=== PATIENT | male | born 1955 | race Caucasian/White ===

== ENCOUNTER 2016-09-12 14:29 | Observation (INO) ==
--- NOTE | 2016-09-12 15:49 | Emergency Department Note ---
Disposition Clinical Impression: Near syncope Disposition: Admitted As Inpatient Condition: Undetermined Referrals: NO,PCP [Primary Care Provider] - Forms: Work/School Release, ED Satisfaction Letter Time of Disposition: 20:13 General Adult HPI - General Chief complaint: ED General Medical Stated complaint: dizziness Time Seen by Provider: 09/12/16 15:47 Source: patient Mode of arrival: ambulatory Limitations: no limitations Nursing Notes Reviewed: Yes Vital Signs Reviewed: Yes - History of Present Illness HPI Narrative: 61-year-old male with recent diagnosis of type 2 diabetes and hypertension arrives to [facility] emergency department complaining of dizziness, nausea, vomiting , generalized malaise. The patient states that he was seen one week ago for similar complaints and was diagnosed with type 2 diabetes and instructed to change his diet which she has done. In addition the patient states that he was recently started on lisinopril for his blood pressure. The patient was initially complaining of systolics in the 200s at that time. The patient has been taking his lisinopril as prescribed. He is an appointment set up with a PCP for the first time within the next 2 days. The patient states that over the past 3 days he has continued to experience nausea, vomiting, generalized malaise. The patient has no focalized weaknesses or chest pain, difficulty breathing. The patient states that he feels ill even if he does not take his medicine. The patient states he has been unable to food down due to his symptoms. The patient denies any other complaints at this time. Pain Scale: 0 Improves with: nothing Worsens with: nothing Associated symptoms: Reports: malaise, nausea/vomiting Treatments Prior to Arrival: none - Related Data Previous Rx's Medication Instructions Recorded Lisinopril [Zestril] 10 mg PO DAILY #14 tablet 09/07/16 Allergies Allergy/AdvReac Type Severity Reaction Status Date / Time No Known Allergies Allergy Verified 09/07/16 13:43 All systems ED: reviewed and negative except as stated. Constitutional: Reports: weakness. Denies: fever, chills, weight change, night sweats Eyes: Denies: eye pain, eye discharge, vision change Cardiovascular: Denies: chest pain, palpitations, dyspnea on exertion, edema, syncope Respiratory: Denies: cough, dyspnea, wheezes, hemoptysis, stridor Gastrointestinal: Reports: nausea, vomiting, constipation. Denies: abdominal pain, diarrhea, hematemesis, melena, hematochezia Genitourinary: Denies: urgency, dysuria, frequency, hematuria Musculoskeletal: Denies: back pain, neck pain, arthralgia, myalgia Integumentary: Denies: rash, abrasion, lesions Neurological: Reports: weakness. Denies: headache, numbness, paresthesias, confusion, abnormal gait, vertigo Past Medical History - Past Medical History Attestation: Yes The following information was validated with the patient. Source: patient Medical history: Reports: diabetes, hypertension Surgical history: Reports: non-contributory Psychiatric history: Reports: no psych history - Social History Smoking Status: Never smoker Smokeless Tobacco Status: No Alcohol use: Reports: occasionally Drug use: Reports: none Physical Exam Physical Exam: General: Patient alert, no acute distress, not lethargic HEENT: Head normal inspection, atraumatic, PERRLA, oropharynx grossly intact and normal, trachea midline, no JVD Chest: Nontraumatic, nontender, normal chest rise CV: RRR with no murmurs, rubs, gallops Respiratory: Lungs clear to auscultation bilaterally, no rales, rhonchi, wheezes. Abdomen: Normal inspection, Normal bowel sounds 4 quadrants, nontender to palpation : Patient deferred Extremities: Normal inspection, full range of motion, appropriate pulses, capillary refill under 2 seconds Neurological: Patient alert and oriented 3, cranial nerves II through XII grossly intact, GCS 15 Skin: Warm, intact, no rashes noted - General Limitations: no limitations General appearance: alert, in no apparent distress Course Vital Signs Temperature 98.2 F 09/12/16 14:37 Pulse Rate 74 09/12/16 14:37 Respiratory Rate 18 09/12/16 14:37 Blood Pressure 210/101 09/12/16 14:37 O2 Sat by Pulse Oximetry 98 09/12/16 14:37 Temperature 98.2 F 09/12/16 14:37 Pulse Rate 66 09/12/16 18:23 Respiratory Rate 16 09/12/16 18:23 Blood Pressure 214/113 09/12/16 18:23 O2 Sat by Pulse Oximetry 98 09/12/16 18:23 Oxygen Delivery Oxygen Delivery Room Air Medical Decision Making - Lab Data Result diagrams: 09/12/16 16:00 06/05/17 16:02 Lab Results 09/12/16 09/12/16 09/12/16 Range/Units 15:25 16:00 16:00 WBC 6.9 (4.3-11.1) K/mcL RBC 5.40 (4.19-5.50) M/mcL Hgb 15.4 (12.9-16.9) g/dL Hct 44.4 (37.5-50.1) % MCV 82.2 L (83.0-100.0) fL MCH 28.5 (28.0-33.3) pg MCHC 34.7 (31.6-35.5) g/dL RDW 12.4 (11.5-14.5) % Plt Count 158 (140-400) K/mcL MPV 10.5 (9.4-12.4) fL Immature Gran % 0.4 (0-4) % Seg Neutrophils % 67.3 % Lymphocytes % 23.6 % Monocytes % 6.4 % Eosinophils % 2.2 % Basophils % 0.1 % Neutrophils # 4.6 (1.6-8.9) K/mcL Lymphocytes # 1.6 (0.6-4.6) K/mcL Monocytes # 0.4 (0.0-1.3) K/mcL Eosinophils # 0.2 (0.0-0.6) K/mcL Basophils # 0.0 (0.0-0.2) K/mcL Sodium (136-145) mEq/L Potassium (3.5-4.5) mEq/L Chloride (98-109) mEq/L Carbon Dioxide (19-29) mEq/L BUN (8-26) mg/dL Creatinine (0.72-1.25) mg/dL Est GFR ( Amer) (> 60) Est GFR (Non-Af Amer) (> 60) BUN/Creatinine Ratio (6-26) Glucose (70-99) mg/dL POC Glucose 211 H (58-89) Calculated Osmolality (280-300) Calcium (8.6-10.8) mg/dL Troponin I 0.01 (0-0.03) ng/mL 09/12/16 Range/Units 16:02 WBC (4.3-11.1) K/mcL RBC (4.19-5.50) M/mcL Hgb (12.9-16.9) g/dL Hct (37.5-50.1) % MCV (83.0-100.0) fL MCH (28.0-33.3) pg MCHC (31.6-35.5) g/dL RDW (11.5-14.5) % Plt Count (140-400) K/mcL MPV (9.4-12.4) fL Immature Gran % (0-4) % Seg Neutrophils % % Lymphocytes % % Monocytes % % Eosinophils % % Basophils % % Neutrophils # (1.6-8.9) K/mcL Lymphocytes # (0.6-4.6) K/mcL Monocytes # (0.0-1.3) K/mcL Eosinophils # (0.0-0.6) K/mcL Basophils # (0.0-0.2) K/mcL Sodium 136 (136-145) mEq/L Potassium 3.9 (3.5-4.5) mEq/L Chloride 101 (98-109) mEq/L Carbon Dioxide 28 (19-29) mEq/L BUN 13 (8-26) mg/dL Creatinine 0.82 (0.72-1.25) mg/dL Est GFR ( Amer) > 60 (> 60) Est GFR (Non-Af Amer) > 60 (> 60) BUN/Creatinine Ratio 16 (6-26) Glucose 217 H (70-99) mg/dL POC Glucose (58-89) Calculated Osmolality 289 (280-300) Calcium 8.9 (8.6-10.8) mg/dL Troponin I (0-0.03) ng/mL Attestation Statement - Attestation Attestation: Patient was seen with resident physician. I reviewed the history, physical, assessment and plan, and agree with the findings. I also personally evaluated this patient and had [id number] time with this patient. [id number] male presents to the emergency department with a complaint of dizziness, but on further discussion and description of the symptoms is really near syncope. First episode was about a week ago. He was seen in the emergency department and was diagnosed with hypertension and type 2 diabetes. Patient states it is only to doctors. He states that he was started on medications blood pressure was improving, but he just has not felt the same. He still feels like he has could pass out at any given time. He has not had chest pain or shortness of breath. He has had intermittent vomiting most recently on the way here to the emergency department. He is intermittently been able to keep anything down, and generally he just felt weak. On examination vital signs are stable he is hypertensive. Heart regular rhythm and rate. Lungs clear. Abdomen soft and nontender. Extremity is unremarkable no swelling. Neurologically intact. ED course we will do a syncope workup, and likely admit patient for near syncopal episodes. It is concerning that the patient has had improvement in his blood pressure but not really improvement in his symptoms. We will also rehydrated with fluids and use nausea medication to help improve the symptoms as well. The patient did admit at one point during his stay that when he turned his head certain ways he felt increasingly dizzy area however this did not resolve his symptoms when we attempted to treat with meclizine. Because were unable to resolve the symptoms patient still had a lot of concerns, and he described a near syncopal episode initially on arrival. Will admit the patient to the hospital for workup and evaluation for near syncope beyond what we can do in the emergency department. I agree with the resident physician assessment and plan.
[2016-09-12] MEDS ORDERED: Ondansetron 4 MG/2 ML VIAL IVP ONE (15:54)
[2016-09-12] MEDS ORDERED: 0.9 % Sodium Chloride 1,000 ML IVC ONE (15:54)
[2016-09-12 16:25] LABS: Basophils % 0.1 %; Eosinophils # 0.2 K/mcL (0.0-0.6); Eosinophils % 2.2 %; Hematocrit 44.4 % (37.5-50.1); Hemoglobin 15.4 g/dL (12.9-16.9); Immature Granulocytes % 0.4 % (0-4); Lymphocytes # 1.6 K/mcL (0.6-4.6); Lymphocytes % 23.6 %; Mean Corpuscular HGB Conc 34.7 g/dL (31.6-35.5); Mean Corpuscular Hemoglobin 28.5 pg (28.0-33.3); Mean Corpuscular Volume 82.2 fL (83.0-100.0); Mean Platelet Volume 10.5 fL (9.4-12.4); Monocytes # 0.4 K/mcL (0.0-1.3); Monocytes % 6.4 %; Neutrophils # 4.6 K/mcL (1.6-8.9); Platelet Count 158 K/mcL (140-400); Red Cell Distribution Width 12.4 % (11.5-14.5); Segmented Neutrophils % 67.3 %
[2016-09-12 16:29] LABS: BUN/Creatinine Ratio 16 (6-26); Blood Urea Nitrogen 13 mg/dL (8-26); Calcium 8.9 mg/dL (8.6-10.8); Carbon Dioxide 28 mEq/L (19-29); Chloride 101 mEq/L (98-109); Glucose 217 mg/dL (70-99); Osmolality,Calculated 289 (280-300); Potassium 3.9 mEq/L (3.5-4.5); Sodium 136 mEq/L (136-145); eGFR For African Americans > 60 (> 60); eGFR For Non-African Americans > 60 (> 60)
[2016-09-12] MEDS ORDERED: Naloxone 0.4 MG/ML INJ IVP PRN (23:10)
[2016-09-12] MEDS ORDERED: Ondansetron 4 MG/2 ML VIAL IVP PRN (23:10)
[2016-09-12] MEDS ORDERED: Acetaminophen 325 MG TABLET PO PRN (23:10)
[2016-09-12] MEDS ORDERED: 0.9 % Sodium Chloride 1,000 ML IVC SCH (23:15)
[2016-09-12] MEDS ORDERED: Dextrose Gel 15 GM PO PRN ×2 (23:20)
[2016-09-12] MEDS ORDERED: D5% in Water 1,000 ML IVC PRN (23:20)
[2016-09-12] MEDS ORDERED: *HR* Dextrose 50 % in Water (Syg) 50 ML SYRINGE IVP PRN (23:20)
[2016-09-12] MEDS: amLODIPine 5 MG TABLET PO SCH (23:37)
[2016-09-12] MEDS: 0.9 % Sodium Chloride 1,000 ML IVC SCH (23:38)
--- NOTE | 2016-09-13 02:12 | Internal Med History&Physical ---
Date of Encounter: 09/12/16 Time of Encounter: 22:00 Assessment and Plan (1) Hypertensive urgency Current visit: Yes Status: Acute Patient has BP over 200, he is on lisinopril 10 mg daily only. We will increase lisinopril to 20 mg daily and add amlodipine 10 mg daily. - After treatment patient's BP 160s now. - Continue follow-up with BP level. (2) DVT prophylaxis Current visit: Yes Status: Acute lovenox subcutaneously (3) Diabetes Current visit: No Status: Acute Newly diagnosed diabetes. - Place patient on diet control. - Insulin sliding scale coverage. May switch to by mouth medication upon discharge. - hematology nurse educator consult. 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 Escobar is a 61 year old male presented to ER for lightheaded and nausea for one week. Patient said since last Monday, he feels sick, lightheaded and almost fall. Patient has nausea, and vomited twice, the vomiting are stomach content, no blood. Patient came to emergency room and was found blood pressure high to over 200 and glucose is high to 270. He was given medication for BP and diabetes. Patient continues to have nausea and lightheaded. Today, he came to ER again and was found blood pressure 210/101, Glu 217. Patient was admitted for further management. I discussed CODE STATUS with patient. He is a full code. Past Med Surg Social Fam HX - Past Medical History Medical history: diabetes, hypertension Psychiatric history: no psych history - Past Surgical History Surgical History: non-contributory - Social History Smoking Status: Never smoker Smokeless Tobacco Status: No Alcohol use: occasionally Drug use: none - Family History Mother Living Status: Still Living Hx Family Cardiac Disorders: Yes (afib) Internal Medicine - H&P: Meds Lisinopril [Zestril] 10 mg PO DAILY #14 tablet 09/07/16 [Rx] Allergies No Known Allergies Allergy (Verified 09/07/16 13:43) All Systems PM: A 10-system review of systems was performed and is negative for pertinent findings except as documented above in the HPI. - Constitutional Vitals: Temp Pulse Resp BP Pulse Ox 98.0 F 68 16 168/88 97 09/12/16 22:10 09/12/16 22:10 09/12/16 22:10 09/13/16 00:37 09/12/16 22:10 General appearance: Present: A&O X 3, pleasant, no acute distress, answers questions appropriately - Head Head exam: Present: atraumatic, normocephalic - Eye Eye exam: Present: PERRL, conjuntiva pink, sclera anicteric Pupils: Present: PERRL - Neck Neck exam general surgery: Present: supple, trachea midline. Absent: lymphadenopathy - Respiratory Respiratory exam: Present: CTAB. Absent: accessory muscle use, rales, rhonchi, wheezes - Cardiovascular Cardiovascular exam: Present: RRR, +S1, +S2. Absent: diastolic murmur, gallop, rubs, systolic murmur - GI/Abdominal GI/Abdominal exam: Present: normal bowel sounds, soft, no peritoneal signs. Absent: distended, tenderness - Extremities Exam Extremities exam: Present: warm, radial pulses palpable and symetrical. Absent : calf tenderness, cyanotic, pedal edema - Neurological Exam Neurological exam: Present: CN II-XII intact, oriented X3, no focal deficits. Absent: pronater drift, facial droop, speech deficit - Skin Skin exam: Present: dry, intact Internal Med - H&P Results - Labs CBC & Chem 7: 09/12/16 16:00 09/12/16 16:02
[2016-09-13] MEDS: *HR* Enoxaparin 40 MG/0.4 ML SYRINGE SQ SCH (05:54)
[2016-09-13 07:16] LABS: Basophils % 0.4 %; Eosinophils # 0.2 K/mcL (0.0-0.6); Eosinophils % 2.9 %; Hematocrit 40.1 % (37.5-50.1); Hemoglobin 14.2 g/dL (12.9-16.9); Immature Granulocytes % 0.3 % (0-4); Lymphocytes # 2.6 K/mcL (0.6-4.6); Lymphocytes % 35.3 %; Mean Corpuscular HGB Conc 35.4 g/dL (31.6-35.5); Mean Corpuscular Hemoglobin 29.2 pg (28.0-33.3); Mean Corpuscular Volume 82.3 fL (83.0-100.0); Mean Platelet Volume 10.7 fL (9.4-12.4); Monocytes # 0.5 K/mcL (0.0-1.3); Monocytes % 7.4 %; Neutrophils # 3.9 K/mcL (1.6-8.9); Platelet Count 158 K/mcL (140-400); Red Blood Count 4.87 M/mcL (4.19-5.50); Red Cell Distribution Width 12.7 % (11.5-14.5); Segmented Neutrophils % 53.7 %
[2016-09-13 07:30] LABS: BUN/Creatinine Ratio 16 (6-26); Blood Urea Nitrogen 13 mg/dL (8-26); Calcium 8.6 mg/dL (8.6-10.8); Carbon Dioxide 28 mEq/L (19-29); Chloride 104 mEq/L (98-109); Glucose 164 mg/dL (70-99); Magnesium 1.9 mg/dL (1.6-2.6); Osmolality,Calculated 292 (280-300); Phosphorous 3.7 mg/dL (2.3-4.7); Potassium 3.5 mEq/L (3.5-4.5); Sodium 139 mEq/L (136-145); eGFR For African Americans > 60 (> 60); eGFR For Non-African Americans > 60 (> 60)
[2016-09-13 08:01] LABS: Hemoglobin A1C 10.4 %
[2016-09-13] MEDS: amLODIPine 5 MG TABLET PO SCH (09:30)
[2016-09-13] MEDS: Insulin LISPRO 300 UNITS/3 ML VIAL SQ SCH ×3 (09:30→16:19)
--- NOTE | 2016-09-13 16:33 | Internal Med Progress Note ---
Date of Encounter: 09/13/16 Time of Encounter: 10:35 - Assessment and plan (1) Hypertensive urgency Current Visit: Yes Status: Resolved Assessment and plan: Blood pressure is at goal and well controlled and the patient setting. Blood pressure was over 200 yesterday. His lisinopril was increased to 20 mg daily and amlodipine 10 mg by mouth daily was added. Continue to monitor blood pressure and continue medications. (2) Diabetes Current Visit: No Status: Acute Assessment and plan: Newly diagnosed diabetes. Patient is on diabetic diet. His using sliding scale insulin during his inpatient stay. Will change to metformin on discharge. Patient has not been seen by nurse educator yet. Will continue Accu-Cheks before meals and at bedtime. Qualifiers: Diabetes mellitus type: type 2 Diabetes mellitus complication status: without complication Diabetes mellitus residential insulin use: without residential use Qualified Code(s): E11.9 - Type 2 diabetes mellitus without complications (3) DVT prophylaxis Current Visit: Yes Status: Acute Assessment and plan: Lovenox subcutaneous daily. - Time Spent With Patient less than 15 minutes - Subjective Interval history: Patient was seen and assessed at 10:35 AM. He is lying in a dark room on his side facing away from the door. He denies any pain. He says that he is tired and has been ever since the increase in his blood pressure medication. He is felt to be new onset diabetes in the emergency department. He says that he expected this and says that he knows that he has a poor diet and that he has lost about 10-15 pounds over the last 2 years. He denies polydipsia or polyuria in the recent or remote future. He reports a 1 week ago he became lightheaded and fell and is remained lightheaded since. He went to the emergency room last week and was told that he was hypertensive and was given medication and went home and states he did not get better. He returned on yesterday. On his way to the emergency room yesterday had nausea and vomiting. I reassessed him this afternoon for ability to go home. He reports dry heaves , decreased appetite, and says that he has not had anything to eat today. He was given Zofran and we will encourage him to try clear liquids tonight. Advance as tolerated. Most likely we will discharge him tomorrow if he is able to tolerate by mouth intake. - Constitutional Vitals: Temp Pulse Resp BP Pulse Ox 98.4 F 70 16 149/77 96 09/13/16 15:57 09/13/16 15:57 09/13/16 15:57 09/13/16 15:57 09/13/16 15:57 General appearance: Present: cooperative, A&O X 3, pleasant, no acute distress, answers questions appropriately - Head Head exam: Present: normal inspection - Eye Eye exam: Present: normal appearance, conjuntiva pink. Absent: nystagmus - Neck Neck exam general surgery: Present: normal inspection. Absent: lymphadenopathy , tenderness - Respiratory Respiratory exam: Present: CTAB. Absent: rales, respiratory distress, rhonchi, stridor, wheezes - Cardiovascular Cardiovascular exam: Present: RRR, +S1, +S2. Absent: clicks, diastolic murmur, gallop, systolic murmur - GI/Abdominal GI/Abdominal exam: Present: normal bowel sounds, soft. Absent: hepatomegaly, tenderness - Extremities Exam Extremities exam: Present: normal inspection, warm, radial pulses palpable and symetrical. Absent: pedal edema, tenderness - Neurological Exam Neurological exam: Present: alert, oriented X3, no focal deficits, strengths equal and symetr throughout. Absent: facial droop, speech deficit Internal Medicine: Result - Labs CBC & Chem 7: 09/13/16 06:25 09/13/16 06:25 Labs: Short CBC 09/13/16 Range/Units 06:25 WBC 7.3 (4.3-11.1) K/mcL Hgb 14.2 (12.9-16.9) g/dL Hct 40.1 (37.5-50.1) % Plt Count 158 (140-400) K/mcL Neutrophils # 3.9 (1.6-8.9) K/mcL BMP 09/13/16 06:25 Sodium 139 Potassium 3.5 Chloride 104 Carbon Dioxide 28 BUN 13 Creatinine 0.82 Glucose 164 H Calcium 8.6 Consult Discharge Plan - Plan Referrals: NO,PCP [Primary Care Provider] -
[2016-09-13] MEDS: Loratadine 10 MG TABLET PO SCH (20:58)
[2016-09-13] MEDS ORDERED: Insulin LISPRO 300 UNITS/3 ML VIAL SQ SCH (21:00)
--- NOTE | 2016-09-13 23:47 | Electrocardiograph Report ---
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
[2016-09-14 05:29] LABS: Basophils % 0.4 %; Eosinophils # 0.2 K/mcL (0.0-0.6); Hematocrit 40.8 % (37.5-50.1); Hemoglobin 13.8 g/dL (12.9-16.9); Immature Granulocytes % 0.2 % (0-4); Lymphocytes # 2.4 K/mcL (0.6-4.6); Lymphocytes % 42.2 %; Mean Corpuscular HGB Conc 33.8 g/dL (31.6-35.5); Mean Corpuscular Volume 82.8 fL (83.0-100.0); Mean Platelet Volume 10.1 fL (9.4-12.4); Monocytes # 0.5 K/mcL (0.0-1.3); Monocytes % 8.2 %; Neutrophils # 2.6 K/mcL (1.6-8.9); Platelet Count 155 K/mcL (140-400); Red Blood Count 4.93 M/mcL (4.19-5.50); Red Cell Distribution Width 12.5 % (11.5-14.5)
[2016-09-14 05:46] LABS: BUN/Creatinine Ratio 15 (6-26); Blood Urea Nitrogen 12 mg/dL (8-26); Calcium 8.5 mg/dL (8.6-10.8); Carbon Dioxide 25 mEq/L (19-29); Chloride 106 mEq/L (98-109); Chol/HDL Ratio 4.4 (0-4.9); Cholesterol 131 mg/dL (< 200); Glucose 149 mg/dL (70-99); HDL Cholesterol 30 mg/dL (40-59); LDL Cholesterol,Calculated 79 mg/dL (0-99); Osmolality,Calculated 289 (280-300); Potassium 3.6 mEq/L (3.5-4.5); Sodium 138 mEq/L (136-145); Triglycerides 108 mg/dL (< 150); eGFR For African Americans > 60 (> 60); eGFR For Non-African Americans > 60 (> 60)
[2016-09-14] MEDS: *HR* Enoxaparin 40 MG/0.4 ML SYRINGE SQ SCH (06:03)
[2016-09-14] MEDS: 0.9 % Sodium Chloride 1,000 ML IVC SCH (06:04)
[2016-09-14] MEDS: Loratadine 10 MG TABLET PO SCH (08:04)
[2016-09-14] MEDS: amLODIPine 5 MG TABLET PO SCH (08:04)
[2016-09-14] MEDS: Insulin LISPRO 300 UNITS/3 ML VIAL SQ SCH ×2 (08:05→12:08)
[2016-09-14 10:38] VITALS: BP 164/82
--- NOTE | 2016-09-14 14:26 | Discharge Summary ---
Date of Encounter: 09/14/16 Time of Encounter: 11:00 - Discharge Diagnosis (1) Hypertensive urgency Priority: Primary Status: Resolved Comments: Blood pressure has been above goal of 140/90 at times during admission, has been elevated today. Was over 200 on admission. Lisinopril was increased to 20 mg daily and amlodipine 10 mg was added. Patient states that he is feeling better. He will need to follow up with primary care for medication adjustment and continued monitoring of blood pressure. I did encourage patient to take his blood pressure routinely either at home with a home monitor or at a pharmacy. We did discuss the dangers of untreated hypertension, especially with diabetes. Patient was aware. (2) Diabetes Priority: Secondary Status: Acute Comments: New onset diabetes. Initial A1c is 10.4. Patient was diagnosed emergency department last week, but was not sent home with any glucose testing supplies were instructions. Patient seems exceptionally motivated to eat correctly and has good support at home of his son. Patient seems educated on carbohydrates and seems upset that this morning's diabetic diet consisted of orange juice, milk, and 2 large pancakes. He was aware enough to eat one pancake. I will still have him follow-up with chemical educator outpatient. I will also send him home with metformin, and a prescription for glucose testing supplies. I discussed the side effects of metformin with him, I urged him to continue taking it the symptoms became exceptionally bothersome. I encouraged him to follow up with primary care prior to stopping medication if symptoms did become bothersome. Qualifiers: Diabetes mellitus type: type 2 Diabetes mellitus complication status: without complication Diabetes mellitus termite control representative insulin use: without termite control representative use Qualified Code(s): E11.9 - Type 2 diabetes mellitus without complications (3) DVT prophylaxis Priority: Secondary Status: Acute Comments: Lovenox subcutaneous daily. - Discharge Medications Prescriptions: amLODIPine [Norvasc] 10 mg PO DAILY #30 tablet Blood Sugar Diagnostic [Test Strips] 1 each MC QID #120 strip Blood-Glucose Meter, Drum-Type [Accu-Chek] 1 each MC DAILY #1 kit Fluticasone Propionate Nasal [Flonase] 50 mcg NS DAILY #1 bottle Lancets 1 each MC QID #120 each Lancing Device 1 each MC DAILY #1 each Lisinopril [Zestril] 20 mg PO DAILY #30 tablet Loratadine [Claritin] 10 mg PO DAILY #30 tablet metFORMIN [Glucophage] 500 mg PO BIDWM #60 tablet Home Medications: Blood Sugar Diagnostic [Test Strips] 1 each QID #120 strip 09/14/16 [Rx] Blood-Glucose Meter, Drum-Type [Accu-Chek] 1 each DAILY #1 kit 09/14/16 [Rx] Fluticasone Propionate Nasal [Flonase] 50 mcg NS DAILY #1 bottle 09/14/16 [Rx] Lancets 1 each QID #120 each 09/14/16 [Rx] Lancing Device 1 each DAILY #1 each 09/14/16 [Rx] Lisinopril [Zestril] 20 mg PO DAILY #30 tablet 09/14/16 [Rx] Loratadine [Claritin] 10 mg PO DAILY #30 tablet 09/14/16 [Rx] amLODIPine [Norvasc] 10 mg PO DAILY #30 tablet 09/14/16 [Rx] metFORMIN [Glucophage] 500 mg PO BIDWM #60 tablet 09/14/16 [Rx] Allergies/Adverse Reactions: Allergies No Known Allergies Allergy (Verified 09/07/16 13:43) Date of admission: 09/12/16 21:11 Primary care physician: PCP NO Consults: 09/12/16 21:50 Consult to Email Production Specialist [CONS] Routine Reason for SW Consult: self pay 09/13/16 02:19 Consult to Bus Escort [CONS] Routine Comment: Reason for Consult: Newly diagnosed Diabetes Discharging clinician: Faye Lockhart Anticipated date of discharge: 09/14/16 - Patient Status Disposition: Home, Self-Care Condition: Good Functional capacity at discharge: independent ambulation Overall status at discharge: patient is back to baseline - Discharge Instructions Follow Up With: NO,PCP [Primary Care Provider] - Additional Instructions: Please follow-up with your primary care physician in the next week for evaluation of blood sugar. Please take your medications as directed and monitor your blood pressure as we discussed earlier. Check your blood sugar every morning when you awaken prior to eating or drinking anything. Check it again 2 hours after a meal, then again before bedtime. Metformin can cause gastric upset and diarrhea. If the symptoms become too bothersome, please do not stop taking the medication and consult your primary care provider first. I am referring you to the chemical educator for diet planning. It sounds like you are motivated and have good support at home, continue to watch your diet until you are seen by the chemical educator. Return to the emergency department immediately for any new problems or concerns. - Diet and Activity Activity: increase activity as tolerated, return to work once cleared by your PCP/specialist Diet: diabetic diet, low fat, low cholesterol Hospital course: Mr. Escobar is a 61 year old male with virtually no prior medical history, who presents for admission for hypertensive urgency and new onset diabetes. Blood pressure was over 200 systolic in the emergency department. He had been started on lisinopril 10 mg daily, it was increased to 20 mg daily, and amlodipine 10 mg daily was added, as well. IT has been primarily well controlled, although today it was slightly above goal 150s over 80s. Patient will need to follow-up with primary care for medication adjustments and/or additions, deletions. I have encouraged patient to check his blood pressure routinely either at home or out someplace, such as a pharmacy. He states that he feels significantly better today than he did yesterday and is ready to go home. Patient is new-onset diabetes with initial A1c is 10.4. Patient does appear very motivated to get his blood sugar under control. He seemed upset the today' s diabetic breakfast diet contained 2 large pancakes, orange juice, and milk. I will refer him outpatient to see chemical educator. He seems to have good support at home of his son who is been helping him with his diet. I discussed counting carbohydrates with him and discussed keeping carbohydrates around 45 g per meal. We discussed label reading and that he would be taking his blood sugar at least bear minimum of fasting every morning. I am sending him home with a prescription for glucometer, strips, lancets, lancing device, metformin 500 mg by mouth twice daily with meals. I told him he will need to follow-up with primary care for continued evaluation and lab monitoring. He reports his normal sinus headache that is had last night and today. He states the Claritin did seem to help him, I will send him home with the current prescription for Claritin, as well as a prescription for Flonase. We discussed him not needing an antibiotic at this time and that if symptoms persisted and/ or became worse he would need to see primary care provider for possible antibiotic prescription at that time. Patient's labs and vital signs have remained stable throughout the visit. He is stable and appropriate for discharge. - Time Spent with Patient Total time spent providing and/or coordinating discharge services: Less than 30 minutes - Constitutional Vitals: Temp Pulse Resp BP Pulse Ox 97.8 F 71 16 164/82 96 09/14/16 10:35 09/14/16 10:35 09/14/16 10:35 09/14/16 10:35 09/14/16 10:35 General appearance: Present: cooperative, A&O X 3, pleasant, no acute distress, answers questions appropriately - Head Head exam: Present: normal inspection - Eye Eye exam: Present: normal appearance, conjuntiva pink - ENT ENT exam: Present: mucous membranes moist, normal exam, normal external ear exam - Neck Neck exam general surgery: Present: normal inspection. Absent: lymphadenopathy , tenderness - Respiratory Respiratory exam: Present: CTAB. Absent: rales, respiratory distress, rhonchi, stridor, wheezes - Cardiovascular Cardiovascular exam: Present: RRR, +S1, +S2. Absent: bradycardia, diastolic murmur, gallop, systolic murmur, tachycardia - Expanded Cardiovascular Exam Peripheral pulses: 2+: Dorsalis Pedis (L) PM, Dorsalis Pedis (R) PM - GI/Abdominal GI/Abdominal exam: Present: normal bowel sounds, soft. Absent: hepatomegaly, mass, pulsatile mass, tenderness - Extremities Exam Extremities exam: Present: normal capillary refill, normal inspection, warm, radial pulses palpable and symetrical. Absent: pedal edema, tenderness - Neurological Exam Neurological exam: Present: alert, oriented X3, no focal deficits, strengths equal and symetr throughout. Absent: motor sensory deficit
== END 2016-09-14 16:15 | disposition home or self-care (01) ==
LOC: 3BNU 14:29 → EMEROO 14:29 → 3BNU 21:27
PROVIDERS: ADMIT Internal Medicine; ATTEND Nurse Practitioner Family

== ENCOUNTER 2016-09-29 15:27 | Observation (INO) ==
[2016-09-29] MEDS ORDERED: Ondansetron 4 MG/2 ML VIAL IVP ONE ×2 (17:34→17:47)
[2016-09-29] MEDS ORDERED: 0.9 % Sodium Chloride 1,000 ML IVC ONE ×2 (17:34→18:37)
--- NOTE | 2016-09-29 17:40 | Emergency Department Note ---
Disposition Clinical Impression: ROC (acute kidney injury) Intractable nausea and vomiting Qualifiers: Vomiting type: unspecified Qualified Code(s): R11.2 - Nausea with vomiting, unspecified Disposition: Admitted As Inpatient Condition: Fair Referrals: Boris Shelby MD [Primary Care Provider] - Forms: ED Satisfaction Letter Time of Disposition: 19:03 Dizziness HPI - General Chief Complaint: ED Dizziness Stated Complaint: N/V, dizziness Time Seen by Provider: 09/29/16 17:15 Source: patient, family Limitations: no limitations Nursing Notes Reviewed: Yes Vital Signs Reviewed: Yes - History of Present Illness HPI Narrative: Patient is a 61-year-old male who presents to [facility] ED with a chief complaint of nausea, vomiting, dizziness like he is lightheaded whenever he has change in position. States he was just admitted last week for elevated blood pressure and new diagnosis of type 2 diabetes. He was placed on increased blood pressure medications as well as metformin. Patient states that as soon as he got to the exit ramp when he was leaving the hospital after being discharged, he started getting nauseous and vomited again. States persistently ever since then he has had nausea with vomiting anytime he gets up or moves around. Denies any pain in his head or neck or or abdomen. States when he stays still, he feels fine for the most part. He has just been getting increasingly weak ever since this has been happening. Pt Subjective Complaint: lightheadedness, weakness Onset (ago): day(s) Timing: gradual onset, intermittent Description: sense of movement, lightheadedness History of similar episodes: No History of trauma: No Severity: severe Improves with: remaining still Worsens with: movement, position Associated symptoms: Reports: denies other symptoms, weakness, nausea, vomiting. Denies: chest pain, confusion, diaphoresis, fever, chills, shortness of breath, vision changes - Related Data Previous Rx's Medication Instructions Recorded Blood Sugar Diagnostic [Test 1 each QID #120 strip 09/14/16 Strips] Blood-Glucose Meter, Drum-Type 1 each DAILY #1 kit 09/14/16 [Accu-Chek] Fluticasone Propionate Nasal 50 mcg NS DAILY #1 bottle 09/14/16 [Flonase] Lancets 1 each QID #120 each 09/14/16 Lancing Device 1 each DAILY #1 each 09/14/16 Lisinopril [Zestril] 20 mg PO DAILY #30 tablet 09/14/16 Loratadine [Claritin] 10 mg PO DAILY #30 tablet 09/14/16 amLODIPine [Norvasc] 10 mg PO DAILY #30 tablet 09/14/16 metFORMIN [Glucophage] 500 mg PO BIDWM #60 tablet 09/14/16 Allergies Allergy/AdvReac Type Severity Reaction Status Date / Time No Known Allergies Allergy Verified 09/07/16 13:43 All systems ED: reviewed and negative except as stated. Past Medical History - Past Medical History Attestation: Yes The following information was validated with the patient. Source: patient Medical history: Reports: diabetes, hypertension Surgical history: Reports: non-contributory Psychiatric history: Reports: no psych history - Social History Smoking Status: Never smoker Smokeless Tobacco Status: No Alcohol use: Reports: occasionally Drug use: Reports: none Physical Exam - General Limitations: no limitations General appearance: alert - Head Head exam: atraumatic, normocephalic, normal inspection - Eye Eye exam: Present: normal appearance, PERRL, EOMI - ENT ENT exam: normal exam, normal oropharynx, mucous membranes moist - Neck Neck exam: Present: normal inspection, full ROM, trachea midline - Chest Chest inspection: Present: normal inspection, symmetric chest wall rise - Respiratory Respiratory exam: Present: normal lung sounds bilaterally - Cardiovascular Cardiovascular exam: Present: regular rate, normal rhythm, normal heart sounds - Abdominal Exam Abdominal exam: Present: soft, Non-Tender. Absent: tenderness, distention, guarding, rebound, rigidity - Extremities Exam Extremities exam: Present: normal inspection, full ROM. Absent: tenderness, pedal edema - Back Exam Back exam: Present: normal inspection, full ROM. Absent: tenderness - Neurological Exam Neurological exam: Present: alert. Absent: motor sensory deficit - Expanded Neurological Exam Speech: Present: fluid speech Cerebellar function: finger to nose: Normal, heel to dickens: Normal Motor strength - LUE: 5/5 Motor strength - RUE: 5/5 Motor strength - LLE: 5/5 Motor strength - RLE: 5/5 Sensory exam upper extremity: light touch: Normal Sensory exam lower extremity: light touch: Normal Coma Scale Eye Opening: Spontaneous Coma Scale Motor Response: Obeys Commands Coma Scale Verbal Response: Oriented Coma Scale Total: 15 - Psychiatric Psychiatric exam: Present: normal affect, normal mood - Skin Skin exam: Present: warm, dry, intact, normal color Course Course Narrative: Patient seen and examined. Persistent intractable nausea with vomiting and lightheadedness. Lab work, CT head, EKG, troponin ordered.we will place a IV and give 1 L IV fluids. we will give 8 mg Zofran, 5 mg valium. - Reevaluation(s) Reevaluation #1: Lab work shows new onset acute kidney injury with a creatinine of 1.26. We will go ahead and give a second liter bolus of fluids. We will admit for intractable nausea and vomiting. patient will need continued IVF, nausea control and may need an MRI of the brain tomorrow. I spoke with hospitalist Yessy Marino who has accepted patient for admission. Time: 19:01 Vital Signs Temperature 97.7 F 09/29/16 15:38 Pulse Rate 74 09/29/16 15:38 Respiratory Rate 16 09/29/16 15:38 Blood Pressure 138/74 09/29/16 15:38 O2 Sat by Pulse Oximetry 98 09/29/16 15:38 Temperature 97.7 F 09/29/16 15:38 Pulse Rate 83 09/29/16 18:11 Respiratory Rate 18 09/29/16 18:11 Blood Pressure 148/95 09/29/16 18:11 O2 Sat by Pulse Oximetry 97 09/29/16 18:11 Oxygen Delivery Oxygen Delivery Room Air Dizziness - Medical Records Medical records reviewed: Yes I reviewed the patient's medical records. - Lab Data Lab results reviewed: Yes I reviewed the patient's lab results. Result diagrams: 09/29/16 17:36 09/29/16 17:36 Lab Results 09/29/16 09/29/16 09/29/16 Range/Units 17:36 17:36 17:36 WBC 10.2 (4.3-11.1) K/mcL RBC 5.73 H (4.19-5.50) M/mcL Hgb 16.4 (12.9-16.9) g/dL Hct 48.4 (37.5-50.1) % MCV 84.5 (83.0-100.0) fL MCH 28.6 (28.0-33.3) pg MCHC 33.9 (31.6-35.5) g/dL RDW 12.7 (11.5-14.5) % Plt Count 140 (140-400) K/mcL MPV 10.8 (9.4-12.4) fL Immature Gran % 0.4 (0-4) % Seg Neutrophils % 73.5 % Lymphocytes % 20.1 % Monocytes % 4.9 % Eosinophils % 0.8 % Basophils % 0.3 % Neutrophils # 7.5 (1.6-8.9) K/mcL Lymphocytes # 2.0 (0.6-4.6) K/mcL Monocytes # 0.5 (0.0-1.3) K/mcL Eosinophils # 0.1 (0.0-0.6) K/mcL Basophils # 0.0 (0.0-0.2) K/mcL Sodium 141 (136-145) mEq/L Potassium 4.5 (3.5-4.5) mEq/L Chloride 99 (98-109) mEq/L Carbon Dioxide 26 (19-29) mEq/L BUN 35 H (8-26) mg/dL Creatinine 1.26 H (0.72-1.25) mg/dL Est GFR ( Amer) > 60 (> 60) Est GFR (Non-Af Amer) 58 L (> 60) BUN/Creatinine Ratio 28 H (6-26) Glucose 163 H (70-99) mg/dL Calculated Osmolality 304 H (280-300) Lactic Acid (0.5-2.2) mmol/L Calcium 9.3 (8.6-10.8) mg/dL Total Bilirubin 1.0 (0.2-1.2) mg/dL Direct Bilirubin 0.4 (0.0-0.5) mg/dL Indirect Bilirubin 0.6 (0.0-1.2) mg/dL AST 14 (5-34) Units/L ALT 16 (0-55) Units/L Alkaline Phosphatase 67 (38-126) Units/L Troponin I 0.02 (0-0.03) ng/mL Serum Total Protein 7.7 (6.0-8.3) g/dL Albumin 4.1 (3.5-5.0) g/dL Globulin 3.6 H (2.4-3.5) g/dL Albumin/Globulin Ratio 1.1 (1.1-2.2) Amylase 36 (25-125) Units/L Lipase 17 (8-78) Units/L / Range/Units 17:36 WBC (4.3-11.1) K/mcL RBC (4.19-5.50) M/mcL Hgb (12.9-16.9) g/dL Hct (37.5-50.1) % MCV (83.0-100.0) fL MCH (28.0-33.3) pg MCHC (31.6-35.5) g/dL RDW (11.5-14.5) % Plt Count (140-400) K/mcL MPV (9.4-12.4) fL Immature Gran % (0-4) % Seg Neutrophils % % Lymphocytes % % Monocytes % % Eosinophils % % Basophils % % Neutrophils # (1.6-8.9) K/mcL Lymphocytes # (0.6-4.6) K/mcL Monocytes # (0.0-1.3) K/mcL Eosinophils # (0.0-0.6) K/mcL Basophils # (0.0-0.2) K/mcL Sodium (136-145) mEq/L Potassium (3.5-4.5) mEq/L Chloride (98-109) mEq/L Carbon Dioxide (19-29) mEq/L BUN (8-26) mg/dL Creatinine (0.72-1.25) mg/dL Est GFR ( Amer) (> 60) Est GFR (Non-Af Amer) (> 60) BUN/Creatinine Ratio (6-26) Glucose (70-99) mg/dL Calculated Osmolality (280-300) Lactic Acid 1.5 (0.5-2.2) mmol/L Calcium (8.6-10.8) mg/dL Total Bilirubin (0.2-1.2) mg/dL Direct Bilirubin (0.0-0.5) mg/dL Indirect Bilirubin (0.0-1.2) mg/dL AST (5-34) Units/L ALT (0-55) Units/L Alkaline Phosphatase (38-126) Units/L Troponin I (0-0.03) ng/mL Serum Total Protein (6.0-8.3) g/dL Albumin (3.5-5.0) g/dL Globulin (2.4-3.5) g/dL Albumin/Globulin Ratio (1.1-2.2) Amylase (25-125) Units/L Lipase (8-78) Units/L - Radiology Data Radiology results reviewed: Yes I reviewed the patient's radiology results. Chest X-Ray 09/29/16 15:52 IMPRESSION: No acute cardiopulmonary abnormality D/ / Alli Teran / Alli Teran Interpreting Provider: Alli Teran - EKG Data EKG attestation: Yes I reviewed and interpreted this EKG. EKG results narrative: EKG done at 1842 shows normal sinus rhythm with a rate of [address] elevation or depression. Normal axis.
[2016-09-29 17:45] LABS: Basophils % 0.3 %; Eosinophils # 0.1 K/mcL (0.0-0.6); Eosinophils % 0.8 %; Hematocrit 48.4 % (37.5-50.1); Hemoglobin 16.4 g/dL (12.9-16.9); Immature Granulocytes % 0.4 % (0-4); Lymphocytes % 20.1 %; Mean Corpuscular HGB Conc 33.9 g/dL (31.6-35.5); Mean Corpuscular Hemoglobin 28.6 pg (28.0-33.3); Mean Corpuscular Volume 84.5 fL (83.0-100.0); Mean Platelet Volume 10.8 fL (9.4-12.4); Monocytes # 0.5 K/mcL (0.0-1.3); Monocytes % 4.9 %; Neutrophils # 7.5 K/mcL (1.6-8.9); Platelet Count 140 K/mcL (140-400); Red Blood Count 5.73 M/mcL (4.19-5.50); Red Cell Distribution Width 12.7 % (11.5-14.5); Segmented Neutrophils % 73.5 %
[2016-09-29] MEDS ORDERED: diazePAM 10 MG/2 ML SYRINGE IVP ONE (17:47)
[2016-09-29 18:00] LABS: Alanine Aminotransferase 16 Units/L (0-55); Albumin 4.1 g/dL (3.5-5.0); Albumin/Globulin Ratio 1.1 (1.1-2.2); Alkaline Phosphatase 67 Units/L (38-126); Amylase 36 Units/L (25-125); Aspartate Amino Transferase 14 Units/L (5-34); BUN/Creatinine Ratio 28 (6-26); Bilirubin,Direct 0.4 mg/dL (0.0-0.5); Bilirubin,Indirect 0.6 mg/dL (0.0-1.2); Blood Urea Nitrogen 35 mg/dL (8-26); Calcium 9.3 mg/dL (8.6-10.8); Carbon Dioxide 26 mEq/L (19-29); Chloride 99 mEq/L (98-109); Globulin 3.6 g/dL (2.4-3.5); Glucose 163 mg/dL (70-99); Lipase 17 Units/L (8-78); Osmolality,Calculated 304 (280-300); Potassium 4.5 mEq/L (3.5-4.5); Sodium 141 mEq/L (136-145); Total Protein 7.7 g/dL (6.0-8.3); eGFR For African Americans > 60 (> 60); eGFR For Non-African Americans 58 (> 60)
--- NOTE | 2016-09-29 18:43 | Emergency Department Note ---
START Narrative - START START: I examined this patient and my medical decision-making was reviewed with the CERAMIC ARTIST/PA/Advanced Practice Nurse/Resident Physician. I agree with the documented findings, disposition and treatment plan as described except to the extent set forth below. will admit for MRI and neuro or ent consult
[2016-09-29 18:53] LABS: Thyroid Stimulating Hormone 0.165 mcIU/mL (0.350-4.840)
--- NOTE | 2016-09-29 20:16 | Internal Med History&Physical ---
Date of Encounter: 09/29/16 Time of Encounter: 19:15 Assessment and Plan (1) Dizziness Current visit: Yes Status: Acute Unclear etiology - possible vertigo Associated with nausea and vomiting, dizziness worse with movement-possibly vertigo Start Antivert, continue IV Zofran and IV fluids Chest x-ray negative for any acute process EKG-normal sinus rhythm Head CT no acute intracranial process Echocardiogram - pending (2) ROC (acute kidney injury) Current visit: Yes Status: Acute Mild AK I Likely secondary to vomiting, continue IV fluids, repeat labs in a.m. (3) Type 2 diabetes mellitus Current visit: Yes Status: Acute Type 2 diabetes, [id number], hyperglycemia Continue insulin sliding scale and glucose checks Qualifiers: Diabetes mellitus complication status: without complication Diabetes mellitus alf insulin use: without alf use Qualified Code(s): E11.9 - Type 2 diabetes mellitus without complications (4) Essential hypertension Current visit: Yes Status: Acute Uncontrolled, continue home medications, monitor (5) DVT prophylaxis Current visit: No Status: Acute Continue heparin subcutaneous. Internal Medicine - H&P: HPI Admitted From: Emergency Dept History of present illness: Mr. Escobar is a 61 year old male with past medical history of diabetes and hypertension. He presents to the ED with complaints of nausea and vomiting and dizziness. Patient states symptoms started a few days ago, and it gradually worsened. Patient was discharged about 2 weeks ago after being treated for hypertensive urgency and diabetes. He mentions he has not been feeling well for almost 1 week. He was started on metformin recently. Patient states his dizziness is worse when he turns his head or moves around. He feels comfortable when he is laying down and at rest. Also complains of generalized weakness. He had few episodes of vomiting with no blood. He does have persistent nausea however. Denies chest pain and denies shortness of breath denies abdominal pain. Denies fever and denies diarrhea or headache. No other associated symptoms. On examination patient is awake and alert. Not in any acute distress. He is able to provide all history. His mother is at bedside. Initial workup including CT of the head is negative and EKG shows normal sinus rhythm. Troponin is negative and patient does not have fever. His creatinine is 1.26 he is slightly dehydrated. Patient has already been given 1 L bolus in the ED and also been given IV Zofran. Patient will be on maintenance IV fluids. We will also start patient on Antivert to see if that helps with his dizziness. Blood glucose is 163. Patient demonstrates a sinus scale and glucose checked before meals and at bedtime. Patient states he has been advised by his primary care physician and get an echocardiogram and maybe even see a neurologist. Patient and his mother have been explained about his condition and plan of care. Understood and agreed. No unanswered questions. CODE STATUS full code. Past Med Surg Social Fam HX - Past Medical History Medical history: diabetes, hypertension Psychiatric history: no psych history - Past Surgical History Surgical History: non-contributory - Social History Smoking Status: Never smoker Smokeless Tobacco Status: No Alcohol use: occasionally Drug use: none - Family History Mother Living Status: Still Living Hx Family Cardiac Disorders: Yes (afib) Internal Medicine - H&P: Meds Fluticasone Propionate Nasal [Flonase] 50 mcg NS DAILY #1 bottle 09/14/16 [Rx] Lisinopril [Zestril] 20 mg PO DAILY #30 tablet 09/14/16 [Rx] Loratadine [Claritin] 10 mg PO DAILY #30 tablet 09/14/16 [Rx] amLODIPine [Norvasc] 10 mg PO DAILY #30 tablet 09/14/16 [Rx] metFORMIN [Glucophage] 500 mg PO BIDWM #60 tablet 09/14/16 [Rx] Allergies No Known Allergies Allergy (Verified 09/07/16 13:43) All Systems PM: A 10-system review of systems was performed and is negative for pertinent findings except as documented above in the HPI. - Constitutional Constitutional: as per HPI, weakness - Cardiovascular Cardiovascular ROS IM: no chest pain, no diaphoresis, no dyspnea, no dyspnea on exertion, no orthopnea - Respiratory Respiratory: no cough, no dyspnea, no dyspnea on exertion, no wheezing, no chest congestion - Gastrointestinal Gastrointestinal: nausea, vomiting, no abdominal pain, no cramping, no diarrhea - Musculoskeletal Musculoskeletal ROS IM: no arthralgias - Neurological Neurological ROS: dizziness, vertigo, no abnormal gait, no abnormal speech, no focal weakness, no loss of vision - Constitutional Vitals: Temp Pulse Resp BP Pulse Ox 97.7 F 83 18 148/95 97 09/29/16 15:38 09/29/16 18:11 09/29/16 18:11 09/29/16 18:11 09/29/16 18:11 General appearance: Present: A&O X 3, pleasant, no acute distress, answers questions appropriately - Head Head exam: Present: atraumatic - Eye Eye exam: Present: EOMI. Absent: nystagmus - ENT ENT exam: Present: mucous membranes moist - Neck Neck exam general surgery: Present: supple - Respiratory Respiratory exam: Present: CTAB. Absent: rhonchi, wheezes - Cardiovascular Cardiovascular exam: Present: RRR, +S1, +S2 - GI/Abdominal GI/Abdominal exam: Present: soft. Absent: guarding, tenderness - Extremities Exam Extremities exam: Present: radial pulses palpable and symetrical. Absent: cyanotic, pedal edema - Neurological Exam Neurological exam: Present: alert, oriented X3, no focal deficits Internal Med - H&P Results - Labs CBC & Chem 7: 09/29/16 17:36 09/29/16 17:36
[2016-09-29] MEDS ORDERED: Naloxone 0.4 MG/ML INJ IVP PRN (20:38)
[2016-09-29] MEDS ORDERED: Acetaminophen 325 MG TABLET PO PRN (20:38)
[2016-09-29] MEDS ORDERED: D5% in Water 1,000 ML IVC PRN (20:45)
[2016-09-29] MEDS ORDERED: *HR* Dextrose 50 % in Water (Syg) 50 ML SYRINGE IVP PRN (20:45)
[2016-09-29] MEDS ORDERED: Dextrose Gel 15 GM PO PRN ×2 (20:45)
[2016-09-29] MEDS: 0.9 % Sodium Chloride 1,000 ML IVC SCH (22:15)
[2016-09-30] MEDS: Insulin LISPRO 300 UNITS/3 ML VIAL SQ SCH ×5 (01:14→23:39)
[2016-09-30 05:12] LABS: Bilirubin,Urine Negative (Negative); Blood,Urine Negative (Negative); Clarity,Urine Clear (Clear); Color,Urine Yellow (Yellow); Glucose,Urine (UA) 100 mg/dL (Normal); Ketones,Urine 80 mg/dL (Negative); Leukocyte Esterase,Urine Negative (Negative); Nitrite,Urine Negative (Negative); PH,Urine 5.5 pH Units (5.0-8.0); Protein,Urine 30 mg/dL (Neg-Trace); Specific Gravity,Urine 1.027 (1.010-1.025); Urobilinogen,Urine Normal (Normal)
[2016-09-30 05:14] LABS: Squamous Epithelial Cell,Urine Many per lpf (None-Few)
[2016-09-30 05:28] LABS: Hematocrit 43.8 % (37.5-50.1); Mean Corpuscular HGB Conc 33.6 g/dL (31.6-35.5); Mean Corpuscular Hemoglobin 28.1 pg (28.0-33.3); Mean Corpuscular Volume 83.6 fL (83.0-100.0); Mean Platelet Volume 10.9 fL (9.4-12.4); Platelet Count 142 K/mcL (140-400); Red Blood Count 5.24 M/mcL (4.19-5.50); Red Cell Distribution Width 12.4 % (11.5-14.5)
[2016-09-30 05:29] LABS: Hemoglobin 14.7 g/dL (12.9-16.9)
[2016-09-30 05:30] LABS: Bacteria,Urine Few per hpf (None-Few); Hyaline Casts,Urine Moderate per lpf (None-Few); Mucus,Urine Many (Few); Waxy Casts,Urine Few per lpf (None Seen)
[2016-09-30 05:42] LABS: BUN/Creatinine Ratio 31 (6-26); Blood Urea Nitrogen 27 mg/dL (8-26); Calcium 8.5 mg/dL (8.6-10.8); Carbon Dioxide 26 mEq/L (19-29); Chloride 104 mEq/L (98-109); Glucose 99 mg/dL (70-99); Magnesium 1.9 mg/dL (1.6-2.6); Osmolality,Calculated 297 (280-300); Potassium 3.8 mEq/L (3.5-4.5); Sodium 141 mEq/L (136-145); eGFR For African Americans > 60 (> 60); eGFR For Non-African Americans > 60 (> 60)
[2016-09-30] MEDS: Famotidine 20 MG/2 ML VIAL IVP SCH ×2 (06:37→17:56)
[2016-09-30] MEDS: amLODIPine 5 MG TABLET PO SCH (09:09)
[2016-09-30] MEDS: Loratadine 10 MG TABLET PO SCH (09:09)
[2016-09-30] MEDS: 0.9 % Sodium Chloride 1,000 ML IVC SCH (11:40)
[2016-09-30] MEDS: Ondansetron 4 MG/2 ML VIAL IVP PRN ×2 (11:41→20:07)
--- NOTE | 2016-09-30 12:07 | Neurology - Consult Note ---
Date of Encounter: 09/30/16 Time of Encounter: 11:20 Assessment and Plan (1) Vestibular neuronitis, unspecified ear Current Visit: Yes Status: Acute Patient's symptoms as severe nausea and vomiting and [id number] dizziness and shakes concern for possible vestibular neuronitis. Patient has no focal neurological deficits on exam, no changes in vision no changes in hearing no ear pain. Patient's symptoms are increase with upright position. Patient another medical history outside of newly diagnosed diabetes mellitus and hypertension. Plan: MRI of head and brain, started patient on the 4 mg Decadron every 6 hours 1 day, meclizine and anti-emetics to control symptoms. Qualifiers: Laterality: unspecified laterality Qualified Code(s): H81.20 - Vestibular neuronitis, unspecified ear History of Present Illness Chief complaint: Dizziness HPI: Mr. Escobar is a 61 year old male with a past medical history for newly diagnosed diabetes and hypertension 3 weeks ago. Consulted for complaint of sudden onset of dizziness without vertigo symptoms of spinning 26 days ago on . Patient states around noon on he got up and walked around the kitchen and experienced sudden onset of heavy lightheadedness which caused him to fall. Patient states he was able to slow his descent by grabbing onto a rail. Patient states he did not hit his head at that time. Patient states symptoms resolved but returned the next day around noon while he was at work with inclusion of nausea and vomiting. Patient went to the hospital and was then diagnosed with diabetes and hypertension and placed on lisinopril amlodipine and metformin. After patient's discharge patient continued to have symptoms of lightheadedness and nausea and vomiting with periods of standing. Sometimes as soon as he gets up sometimes vomits after standing. Patient denies any other symptoms of change in vision, tunnel vision, change in hearing , pain anywhere, chest pain, shortness of breath, abdominal pain, diarrhea. Patient added that before onset of the symptoms he never went to a doctor for anything. 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 Past Med Surg Social Fam HX - Past Medical History Attestation: Yes The following information was validated with the patient. Source: patient Medical history: diabetes, hypertension Psychiatric history: no psych history - Past Surgical History Surgical History: non-contributory - Social History Smoking Status: Never smoker Smokeless Tobacco Status: No Alcohol use: occasionally Drug use: none - Family History Mother Living Status: Still Living Hx Family Cardiac Disorders: Yes (afib) Father History Unknown: Yes Medications and Allergies Fluticasone Propionate Nasal [Flonase] 50 mcg NS DAILY #1 bottle 09/14/16 [Rx] Lisinopril [Zestril] 20 mg PO DAILY #30 tablet 09/14/16 [Rx] Loratadine [Claritin] 10 mg PO DAILY #30 tablet 09/14/16 [Rx] amLODIPine [Norvasc] 10 mg PO DAILY #30 tablet 09/14/16 [Rx] metFORMIN [Glucophage] 500 mg PO BIDWM #60 tablet 09/14/16 [Rx] Allergies No Known Allergies Allergy (Verified 09/07/16 13:43) All Systems: A 10-system review of systems was performed and is negative for pertinent findings except as documented above in the HPI. - Constitutional Constitutional ROS IM: fatigue, weakness, no anorexia, no chills, no fever(s), no headache(s) - Nose, Mouth, Throat Nose, mouth and throat: as per HPI, no abnormal hearing, no mouth pain, no post- nasal drip, no sinus pain, no sinus pressure, no vertigo - Cardiovascular Cardiovascular ROS IM: no chest pain, no diaphoresis - Respiratory Respiratory IM: no cough, no dyspnea on exertion, no wheezing - Gastrointestinal Gastrointestinal: nausea, vomiting, no abdominal pain, no diarrhea - Musculoskeletal Musculoskeletal ROS IM: no back pain (Chronic), no muscle weakness, no neck pain , no stiffness - Integumentary Integumentary IM: as per HPI - Neurological Neurological ROS: no as per HPI, no abnormal gait, no abnormal hearing, no abnormal movements, no abnormal speech, no confusion, no focal weakness, no frequent falls, no lack of coordination, no loss of vision, no tingling (Right- sided of face), no vertigo, no weakness - Endocrine Endocrine IM: no palpitations - Hematologic/Lymphatic Hematologic/Lymphatic pediatric: no lymphadenopathy Physical Examination - Vital Signs Vital Signs: Initial Vital Signs Temp Pulse Resp BP Pulse Ox 97.7 F 74 16 138/74 98 09/29/16 15:38 09/29/16 15:38 09/29/16 15:38 09/29/16 15:38 09/29/16 15:38 - Exam Exam: General Appearance: Patient is a 61-year-old male lying comfortably on his left side in bed in no acute distress. No noticeable dysarthria or aphasia -Neurological exam: Cranial nerves II-12 intact, no focal deficits observed, strength equal 5/5 bilaterally in upper and lower extremities. Patient is unable to maintain ceiling of his lips when feeling cheek severe, drooping of right corner of mouth with smile, mild difficulty elevating her right brow. Patient able to maintain closure bilateral eyelids, left stronger than right 4/ 5 versus 5/5 respectively - Head Head exam: atraumatic, normocephalic, normal inspection - Eye Eye exam: Present: normal appearance, PERRL, EOMI, negative for scleral icterus negative for conjunctival pallor, no nystagmus - ENT ENT exam: normal exam, normal oropharynx, mucous membranes moist, bilateral equal elevation of soft palate no uvular deviation - Neck Neck exam: Present: normal inspection, full ROM, trachea midline, negative JVD - Chest Chest inspection: Present: Patient has bilateral equal rise and fall of chest wall. Non-tender to palpation. - Respiratory Respiratory exam: Clear to auscultation bilaterally without wheezes rales or rhonchi Cardiovascular Cardiovascular exam: Present: regular rate, normal rhythm, normal heart sounds, without murmurs rubs or gallops. - Abdominal Exam Abdominal exam: Present: soft, nondistended, Non-Tender light and deep palpation in all quadrants. Bowel sounds normoactive throughout all 4 quadrants. Negative for hyper or hyperresonance. - Extremities Exam Extremities exam: Present: normal inspection, full ROM, pulses equal and regular bilaterally upper and lower extremities and radials and also pedal pulses - Back Exam Back exam: Present: normal inspection, full ROM. Absent: tenderness, CVA tenderness (R), CVA tenderness (L) - Psychiatric Psychiatric exam: Present: normal affect, normal mood - Skin Skin exam: Present: warm, dry, intact, normal color - Constitutional General appearance: uncomfortable - Neurologic Sensorimotor examination: intact Detailed motor examination: grossly full strength in all extremities, full strength in all major muscle groups Motor examination - right side: 5/5: deltoids, biceps, triceps, wrist flexion, wrist extension, religious education teacher, hip flexors, tibialis Anterior, quadriceps, toe extension (EHL), plantarflexion Motor examination - left side: 08/12: deltoids, biceps, triceps, wrist flexion, wrist extension, hip flexors, religious education teacher, quadriceps, tibialis Anterior, toe extension (EHL), plantarflexion Detailed sensory examination: intact, light touch Reflexes: Biceps: 2+, Triceps: 2+, Brachioradialis: 2+, Patella: 2+, Achilles: 2 + Mental Status Examination: awake, alert, oriented to person, oriented to place, oriented to time, follows commands appropriately, answers questions appropriately, no agnosia, no aphasia, no aproxia Cranial nerve examination: PERRL, EOMI, visual crow intact, corneal reflexes brisk symmetrically, sensory to face intact, mastication intact, no facial asymmetry is present, no dysarthria, hearing is intact symmetrically, soft palate elevates bilaterally upon phonation, gag reflex intact, flexes SCM and trapezius muscles symmetrically with full power, tongue protrudes midline, no atrophy or facial fasiculations present Cerebellar examination: no dysmetria, performs finger to nose and heel to dickens symmetrically without ataxia, no truncal ataxia, no difficulty with rapid alternating movements, dysarthria Results - Laboratory Findings CBC and BMP: 09/30/16 04:28 09/30/16 04:28 Abnormal lab findings: Abnormal lab results BUN 27 mg/dL (8-26) H 09/30/16 04:28 BUN/Creatinine Ratio 31 (6-26) H 09/30/16 04:28 POC Glucose 128 (58-89) H 09/30/16 10:53 Calcium 8.5 mg/dL (8.6-10.8) L 09/30/16 04:28 Globulin 3.6 g/dL (2.4-3.5) H 09/29/16 17:36 TSH 0.165 mcIU/mL (0.350-4.840) L 09/29/16 17:36 Ur Specific [place] 1.027 (1.010-1.025) H 09/30/16 04:50 Urine Protein 30 mg/dL (Neg-Trace) H 09/30/16 04:50 Urine Glucose (UA) 100 mg/dL (Normal) H 09/30/16 04:50 Urine Ketones 80 mg/dL (Negative) H 09/30/16 04:50 Urine Microscopic RBC 3-5 per hpf (0-3) H 09/30/16 04:50 Urine Microscopic WBC 3-5 per hpf (0-3) H 09/30/16 04:50 Ur Squamous Epith Cells Many per lpf (None-Few) H 09/30/16 04:50 Hyaline Casts Moderate per lpf (None-Few) H 09/30/16 04:50 Waxy Casts Few per lpf (None Seen) H 09/30/16 04:50 Urine Mucus Many (Few) H 09/30/16 04:50 - Diagnostic Findings EKG: image reviewed (EKG taken 09/29/1844 hours shows a normal sinus rhythm at a rate of 80 bpm, appears to be some ST elevation in V3 through V6 without reciprocal changes) Additional findings: Chest X-Ray 09/29/16 15:52 IMPRESSION: No acute cardiopulmonary abnormality D/ / Alli Teran / Alli Teran Interpreting Provider: Alli Teran Head CT 09/29/16 18:27 IMPRESSION: No acute intracranial abnormality. D/ / Vaishnavi Crooks MD / Vaishnavi Crooks MD Interpreting Provider: Vaishnavi Crooks MD Consult Discharge Plan - Plan Referrals: Boris Shelby MD [Primary Care Provider] -
[2016-09-30] MEDS ORDERED: Dexamethasone 4 MG/ML VIAL IVP PRN (14:19)
--- NOTE | 2016-09-30 15:34 | Electrocardiograph Report ---
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
--- NOTE | 2016-09-30 15:41 | Electrocardiograph Report ---
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
--- NOTE | 2016-09-30 17:35 | Internal Med Progress Note ---
Date of Encounter: 09/30/16 Time of Encounter: 14:30 - Assessment and plan (1) Dizziness Current Visit: Yes Status: Acute Assessment and plan: Patient reports to the emergency department yesterday with complaints of nausea , vomiting, and dizziness. He reports that his symptoms started a few days ago and he came increasingly worse. Patient was discharged 2 weeks ago after being treated for hypertensive urgency and diabetes. He says he has not been feeling well for about a week. He was started on metformin recently. Patient states that his dizziness is intermittent and worse when he turns his head or moves around. During exam Dr. Bridges and I had him stand and move his head, there was no nystagmus either lying or standing. He did report some nausea. He denied dizziness during the exam, he did state that his symptoms are intermittent. He reports not much relief with Antivert. We are continuing the IV Zofran and IV fluids. His EKG was normal sinus rhythm. Head CT was negative. Echocardiogram showed LVEF 60-65%, normal LV chamber size and function. Mild concentric LV hypertrophy mild LV diastolic dysfunction. Normal RV structure and function, mildly dilated left atrium, and no evidence of pulmonary hypertension. MRI was resulted. I did speak with Dr. Bridges by phone. Patient is started on aspirin 325 mg by mouth daily and CTA head and neck were ordered. Dr. Bridges came back over to see the patient now, he will see him again in the morning. Head CT 09/29/16 18:27 IMPRESSION: No acute intracranial abnormality. D/ / Vaishnavi Crooks MD / Vaishnavi Crooks MD Interpreting Provider: Vaishnavi Crooks MD Brain MRI 09/30/16 14:17 IMPRESSION: 1. Multiple tiny acute ischemic infarcts in the right posterior inferior cerebellar artery territory. 2. No intracranial hemorrhage or mass effect. 3. Mild chronic white matter microvascular ischemic changes with remote lacunar infarcts in the bilateral basal ganglia and bifrontal horner radiata white matter. 4. Left greater than right mastoid effusions. D/ / Moustapha Steele MD / Moustapha Steele MD Interpreting Provider: Moustapha Steele MD (2) ROC (acute kidney injury) Current Visit: Yes Status: Resolved Assessment and plan: Resolved. Labs have returned to normal limits. Continue to avoid nephrotoxins and monitor labs. 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 We will need to monitor his blood pressure diligently. - Time Spent With Patient less than 15 minutes - Subjective Interval history: This patient was seen and assessed with Dr. Bridges and Dr. Berg. - Constitutional Vitals: Temp Pulse Resp BP Pulse Ox 98.0 F 73 16 168/83 97 09/30/16 15:23 09/30/16 15:23 09/30/16 15:23 09/30/16 15:23 09/30/16 15:23 General appearance: Present: A&O X 3, pleasant, no acute distress, answers questions appropriately - Head Head exam: Present: atraumatic, normal inspection - Eye Eye exam: Present: EOMI, normal appearance, PERRL, conjuntiva pink. Absent: nystagmus - ENT ENT exam: Present: mucous membranes moist, normal exam - Neck Neck exam general surgery: Present: normal inspection. Absent: lymphadenopathy , tenderness - Respiratory Respiratory exam: Present: decreased breath sounds. Absent: rales, respiratory distress, rhonchi, stridor, wheezes - Cardiovascular Cardiovascular exam: Present: RRR, +S1, +S2. Absent: diastolic murmur, systolic murmur - GI/Abdominal GI/Abdominal exam: Present: normal bowel sounds, soft. Absent: hepatomegaly, mass, tenderness - Extremities Exam Extremities exam: Present: full ROM, normal capillary refill, warm, radial pulses palpable and symetrical. Absent: pedal edema - Neurological Exam Neurological exam: Present: alert, oriented X3, no focal deficits, strengths equal and symetr throughout. Absent: motor sensory deficit, facial droop, speech deficit - Skin Skin exam: Present: dry, intact, normal color, warm. Absent: rash Internal Medicine: Result - Labs CBC & Chem 7: 09/30/16 04:28 09/30/16 04:28 Labs: Short CBC 09/30/16 Range/Units 04:28 WBC 7.0 (4.3-11.1) K/mcL Hgb 14.7 D (12.9-16.9) g/dL Hct 43.8 (37.5-50.1) % Plt Count 142 (140-400) K/mcL BMP 09/30/16 04:28 Sodium 141 Potassium 3.8 Chloride 104 Carbon Dioxide 26 BUN 27 H Creatinine 0.88 Glucose 99 Calcium 8.5 L Urine 09/30/16 Range/Units 04:50 Urine Color Yellow (Yellow) Urine Clarity Clear (Clear) Urine pH 5.5 (5.0-8.0) pH Units Ur Specific [place] 1.027 H (1.010-1.025) Urine Protein 30 H (Neg-Trace) mg/dL Urine Glucose (UA) 100 H (Normal) mg/dL - Impressions Impressions Brain MRI 09/30/16 14:17 IMPRESSION: 1. Multiple tiny acute ischemic infarcts in the right posterior inferior cerebellar artery territory. 2. No intracranial hemorrhage or mass effect. 3. Mild chronic white matter microvascular ischemic changes with remote lacunar infarcts in the bilateral basal ganglia and bifrontal horner radiata white matter. 4. Left greater than right mastoid effusions. D/ / Moustapha Steele MD / Moustapha Steele MD Interpreting Provider: Moustapha Steele MD Consult Discharge Plan - Plan Ref[place]: [facility] [place] [facility] [place]Boris Pacheco MD [Primary Care Provider] -
[2016-09-30] MEDS: Aspirin 325 MG TABLET PO SCH (20:06)
[2016-10-01] MEDS: Insulin LISPRO 300 UNITS/3 ML VIAL SQ SCH ×3 (05:33→19:53)
[2016-10-01] MEDS: 0.9 % Sodium Chloride 1,000 ML IVC SCH ×2 (05:35→21:28)
[2016-10-01] MEDS: Famotidine 20 MG/2 ML VIAL IVP SCH ×2 (05:47→16:29)
[2016-10-01] MEDS: Ondansetron 4 MG/2 ML VIAL IVP PRN (05:48)
[2016-10-01] MEDS: amLODIPine 5 MG TABLET PO SCH (08:07)
[2016-10-01] MEDS: Aspirin 325 MG TABLET PO SCH (08:07)
[2016-10-01] MEDS: Loratadine 10 MG TABLET PO SCH (08:07)
[2016-10-01] MEDS ORDERED: hydroCHLOROthiazide 25 MG TABLET PO SCH (09:00)
--- NOTE | 2016-10-01 11:20 | Neurology Progress Note ---
Date of Encounter: 10/01/16 Time of Encounter: : Assessment and Plan (1) CVA (cerebral vascular accident) Current Visit: Yes Status: Acute Likely secondary to right vertebral artery stenosis, as evidence on CTA of brain. Will keep him on Aspirin 325mg daily. Echocardiography showed normal LVEF of 60%, no significant valvular disease. no wall motion abnormality. Lipid panel already done on last admission. permissive BP control during acute phase of CVA 7-10 days after stroke onset. PT can be beneficial. Qualifiers: CVA mechanism: stenosis Precerebral and cerebral artery: vertebral artery Laterality of affected vessel: right Qualified Code(s): I63.211 - Cerebral infarction due to unspecified occlusion or stenosis of right vertebral arteries Subjective Principal diagnosis: CVA Interval history: Patient is seen and examined. He feels fine as long as he is in horizontal position. Overall speaking, when laying iin bed he has no discomforts. MRI of brain showed acute right cerebeller infarct. MR/MR head/brain wo con IMPRESSION: 1. Multiple tiny acute ischemic infarcts in the right posterior inferior cerebellar artery territory. 2. No intracranial hemorrhage or mass effect. 3. Mild chronic white matter microvascular ischemic changes with remote lacunar infarcts in the bilateral basal ganglia and bifrontal horner radiata white matter. 4. Left greater than right mastoid effusions. CTA of neck and head: IMPRESSION: 1. Atherosclerotic changes and mild multifocal narrowing involving the right distal vertebral artery. Minor suggested narrowing in the left distal vertebral artery and basilar artery as well although these areas are limited due to artifact. No acute vascular abnormality otherwise noted. 2. Unremarkable CTA of the head. Objective - Constitutional Vitals: Temp Pulse Resp BP Pulse Ox 98.2 F 72 12 158/82 96 10/01/16 10:49 10/01/16 10:49 10/01/16 10:49 10/01/16 10:49 10/01/16 10:49 - Neurological Exam Sensorimotor examination: Present: intact Motor Examination: Present: grossly full strength in all extremities, full strength in all major muscle groups Motor examination - left side: 5/5: deltoids, biceps, triceps, wrist flexion, wrist extension, hip flexors, crude unit operator, quadriceps, tibialis Anterior, toe extension (EHL), plantarflexion Sensation intact: Present: intact, light touch Mental Status Examination: Present: awake, alert, oriented to person, oriented to place, oriented to time, follows commands appropriately, answers questions appropriately, no agnosia, no aphasia, no aproxia Cranial nerve examination: Present: PERRL, EOMI, visual crow intact, corneal reflexes brisk symmetrically, sensory to face intact, mastication intact, no facial asymmetry is present, no dysarthria, hearing is intact symmetrically, soft palate elevates bilaterally upon phonation, gag reflex intact, flexes SCM and trapezius muscles symmetrically with full power, tongue protrudes midline, no atrophy or facial fasiculations present Cerebellar examination: Present: no dysmetria, performs finger to nose and heel to dickens symmetrically without ataxia, no truncal ataxia, no difficulty with rapid alternating movements, dysarthria Results - Laboratory Findings CBC and BMP: 09/30/16 04:28 09/30/16 04:28 Abnormal lab findings: Abnormal lab results BUN 27 mg/dL (8-26) H 09/30/16 04:28 BUN/Creatinine Ratio 31 (6-26) H 09/30/16 04:28 POC Glucose 107 (58-89) H 09/30/16 23:28 Calcium 8.5 mg/dL (8.6-10.8) L 09/30/16 04:28 Globulin 3.6 g/dL (2.4-3.5) H 09/29/16 17:36 TSH 0.165 mcIU/mL (0.350-4.840) L 09/29/16 17:36 Ur Specific [place] 1.027 (1.010-1.025) H 09/30/16 04:50 Urine Protein 30 mg/dL (Neg-Trace) H 09/30/16 04:50 Urine Glucose (UA) 100 mg/dL (Normal) H 09/30/16 04:50 Urine Ketones 80 mg/dL (Negative) H 09/30/16 04:50 Urine Microscopic RBC 3-5 per hpf (0-3) H 09/30/16 04:50 Urine Microscopic WBC 3-5 per hpf (0-3) H 09/30/16 04:50 Ur Squamous Epith Cells Many per lpf (None-Few) H 09/30/16 04:50 Hyaline Casts Moderate per lpf (None-Few) H 09/30/16 04:50 Waxy Casts Few per lpf (None Seen) H 09/30/16 04:50 Urine Mucus Many (Few) H 09/30/16 04:50 Consult Discharge Plan - Plan Referrals: Boris Shelby MD [Primary Care Provider] -
--- NOTE | 2016-10-01 11:46 | Internal Med Progress Note ---
Date of Encounter: 10/01/16 Time of Encounter: 10:20 - Assessment and plan (1) CVA (cerebral vascular accident) Current Visit: Yes Status: Acute Assessment and plan: MRI done last night showed multiple tiny acute ischemic infarcts in right posterior inferior cerebellar artery territory. There is no hemorrhage or mass effect. There is mild chronic white matter microvascular ischemic changes with remote lacunar infarcts in bilateral basal ganglia bifrontal horner radiata white matter. Patient later had CTA of brain and neck, CVA was likely secondary to right vertebral artery stenosis. Echocardiogram as above. Lipid panel was done on last admission and appears to be within normal limits. Per neurology recommendation, permissive BP control during acute phase of CVA, 710 days after stroke onset. PT can be beneficial. Patient will take aspirin 325 mg daily. Head CTA 09/30/16 18:03 IMPRESSION: 1. Atherosclerotic changes and mild multifocal narrowing involving the right distal vertebral artery. Minor suggested narrowing in the left distal vertebral artery and basilar artery as well although these areas are limited due to artifact. No acute vascular abnormality otherwise noted. 2. Unremarkable CTA of the head. D/ / Alli Teran / Alli Teran Interpreting Provider: Alli Teran Neck CTA 09/30/16 18:03 IMPRESSION: Multifocal narrowing involving the right vertebral artery, greatest in the proximal 3rd and distal most cervical segments. There is no definitive dissection flap or significant atherosclerotic calcification in the cervical vertebral artery. Patent carotid arteries bilaterally without focal significant narrowing. Additional findings as described D/ / Alli Teran / Alli Teran Interpreting Provider: Alli Teran Qualifiers: CVA mechanism: stenosis Precerebral and cerebral artery: vertebral artery Laterality of affected vessel: right Qualified Code(s): I63.211 - Cerebral infarction due to unspecified occlusion or stenosis of right vertebral arteries (2) Dizziness Current Visit: Yes Status: Acute Assessment and plan: patient was sleeping on arrival to room. He arouses easily. He states that he is still sightly dizzy and become slightly nauseated when he stands up to walk, however, he states it is better than it was on arrival. He has been getting up to go to and from the bathroom. Echocardiogram shows LVEF 6065%, normal LV chamber size and function, mild concentric left ventricular hypertrophy, mild left ventricular diastolic dysfunction. Normal RV structure and function, mildly dilated left atrium. No evidence of pulmonary hypertension. We will continue to treat with meclizine and I have stopped the steroids per recommendation of neurology.. Head CT 09/29/16 18:27 IMPRESSION: No acute intracranial abnormality. D/ / Vaishnavi Crooks MD / Vaishnavi Crooks MD Interpreting Provider: Vaishnavi Crooks MD Brain MRI 09/30/16 14:17 IMPRESSION: 1. Multiple tiny acute ischemic infarcts in the right posterior inferior cerebellar artery territory. 2. No intracranial hemorrhage or mass effect. 3. Mild chronic white matter microvascular ischemic changes with remote lacunar infarcts in the bilateral basal ganglia and bifrontal horner radiata white matter. 4. Left greater than right mastoid effusions. D/ / Moustapha Steele MD / Moustapha Steele MD Interpreting Provider: Moustapha Steele MD (3) ROC (acute kidney injury) Current Visit: Yes Status: Resolved (4) Type 2 diabetes mellitus Current Visit: Yes Status: Acute Assessment and plan: Patient reports some nausea. Patient is extremely diligent about monitoring his diet. 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 We will need to monitor his blood pressure diligently. - Time Spent With Patient less than 15 minutes - Subjective Interval history: This patient was seen and assessed this morning at about 10:20 AM. He was asleep, resting in darkened room. He aroused easily. He said he did not get much sleep last night due to noise in the hallway. His speech is clear, there is no nystagmus, his pupils are equal and reactive to light. He says that when he gets up to go to the bathroom he is still slightly dizzy and gets slightly nauseated, however is better than it was on arrival. We will continue to monitor him for symptoms and wait for neurology consult and sign off. - Constitutional Vitals: Temp Pulse Resp BP Pulse Ox 98.2 F 72 12 158/82 96 10/01/16 10:49 10/01/16 10:49 10/01/16 10:49 10/01/16 10:49 10/01/16 10:49 General appearance: Present: A&O X 3, pleasant, no acute distress, answers questions appropriately - Head Head exam: Present: normal inspection - Eye Eye exam: Present: EOMI, normal appearance, PERRL, conjuntiva pink. Absent: nystagmus - ENT ENT exam: Present: mucous membranes moist, normal exam - Neck Neck exam general surgery: Present: normal inspection. Absent: lymphadenopathy , tenderness - Respiratory Respiratory exam: Present: CTAB. Absent: chest wall tenderness, rales, rhonchi , stridor, wheezes - Cardiovascular Cardiovascular exam: Present: RRR, +S1, +S2. Absent: diastolic murmur, systolic murmur - GI/Abdominal GI/Abdominal exam: Present: normal bowel sounds, soft. Absent: hepatomegaly, tenderness - Extremities Exam Extremities exam: Present: normal inspection, warm, radial pulses palpable and symetrical. Absent: pedal edema, tenderness - Neurological Exam Neurological exam: Present: alert, oriented X3, no focal deficits, strengths equal and symetr throughout. Absent: pronater drift, facial droop, speech deficit - Skin Skin exam: Present: dry, normal color, warm. Absent: rash Internal Medicine: Result - Labs CBC & Chem 7: 09/30/16 04:28 09/30/16 04:28 - Impressions Impressions Brain MRI 09/30/16 14:17 IMPRESSION: 1. Multiple tiny acute ischemic infarcts in the right posterior inferior cerebellar artery territory. 2. No intracranial hemorrhage or mass effect. 3. Mild chronic white matter microvascular ischemic changes with remote lacunar infarcts in the bilateral basal ganglia and bifrontal horner radiata white matter. 4. Left greater than right mastoid effusions. D/ / Moustapha Steele MD / Moustapha Steele MD Interpreting Provider: Moustapha Steele MD Head CTA 09/30/16 18:03 IMPRESSION: 1. Atherosclerotic changes and mild multifocal narrowing involving the right distal vertebral artery. Minor suggested narrowing in the left distal vertebral artery and basilar artery as well although these areas are limited due to artifact. No acute vascular abnormality otherwise noted. 2. Unremarkable CTA of the head. D/ / Alli Teran / Alli Teran Interpreting Provider: Alli Teran Neck CTA 09/30/16 18:03 IMPRESSION: Multifocal narrowing involving the right vertebral artery, greatest in the proximal 3rd and distal most cervical segments. There is no definitive dissection flap or significant atherosclerotic calcification in the cervical vertebral artery. Patent carotid arteries bilaterally without focal significant narrowing. Additional findings as described D/ / Alli Teran / Alli Teran Interpreting Provider: Alli Teran Consult Discharge Plan - Plan Referrals: Boris solares MD [Primary Care Provider] -
[2016-10-02] MEDS: Ondansetron 4 MG/2 ML VIAL IVP PRN (03:21)
[2016-10-02 03:39] LABS: Hematocrit 42.3 % (37.5-50.1); Hemoglobin 14.4 g/dL (12.9-16.9); Immature Granulocytes % 0.1 % (0-4); Lymphocytes % 35.2 %; Mean Corpuscular Hemoglobin 28.6 pg (28.0-33.3); Mean Corpuscular Volume 83.9 fL (83.0-100.0); Mean Platelet Volume 11.2 fL (9.4-12.4); Platelet Count 139 K/mcL (140-400); Red Blood Count 5.04 M/mcL (4.19-5.50); Red Cell Distribution Width 12.5 % (11.5-14.5); Segmented Neutrophils % 52.7 %
[2016-10-02 03:40] LABS: Basophils % 0.4 %; Eosinophils # 0.2 K/mcL (0.0-0.6); Eosinophils % 3.1 %; Lymphocytes # 2.4 K/mcL (0.6-4.6); Monocytes # 0.6 K/mcL (0.0-1.3); Monocytes % 8.5 %; Neutrophils # 3.5 K/mcL (1.6-8.9)
[2016-10-02 03:43] LABS: BUN/Creatinine Ratio 16 (6-26); Calcium 8.8 mg/dL (8.6-10.8); Carbon Dioxide 26 mEq/L (19-29); Chloride 102 mEq/L (98-109); Glucose 82 mg/dL (70-99); Osmolality,Calculated 287 (280-300); Potassium 3.8 mEq/L (3.5-4.5); Sodium 139 mEq/L (136-145); eGFR For African Americans > 60 (> 60); eGFR For Non-African Americans > 60 (> 60)
[2016-10-02 03:47] LABS: Blood Urea Nitrogen 13 mg/dL (8-26)
[2016-10-02] MEDS: Insulin LISPRO 300 UNITS/3 ML VIAL SQ SCH ×2 (05:12)
[2016-10-02] MEDS: Famotidine 20 MG/2 ML VIAL IVP SCH (05:12)
[2016-10-02] MEDS: amLODIPine 5 MG TABLET PO SCH (09:42)
[2016-10-02] MEDS: Aspirin 325 MG TABLET PO SCH (09:42)
[2016-10-02] MEDS: 0.9 % Sodium Chloride 1,000 ML IVC SCH (09:50)
[2016-10-02] MEDS: Loratadine 10 MG TABLET PO SCH (09:58)
--- NOTE | 2016-10-02 10:39 | Neurology Progress Note ---
Date of Encounter: 10/02/16 Time of Encounter: 10:35 Assessment and Plan (1) CVA (cerebral vascular accident) Current Visit: Yes Status: Acute Right cerebellar infarct secondary to right vertebral artery stenosis. Improving. Stroke work up already completed. Neurological prognosis is fair. Dizziness and nausea are expected to improve. Patient will be discharged home today. Will sign off now, please call if any questions Qualifiers: CVA mechanism: stenosis Precerebral and cerebral artery: vertebral artery Laterality of affected vessel: right Qualified Code(s): I63.211 - Cerebral infarction due to unspecified occlusion or stenosis of right vertebral arteries Subjective Principal diagnosis: CVA Interval history: Patient is seen and examined. He again is mostly asymptomatic as long as he lies in bed. No significant complaints. When getting up he still has mildly dizzy but certainly improved. No Nause vomiting. Objective - Constitutional Vitals: Temp Pulse Resp BP Pulse Ox 98.4 F 71 16 145/72 95 10/02/16 06:30 10/02/16 06:30 10/02/16 06:30 10/02/16 06:30 10/02/16 06:30 - Neurological Exam Sensorimotor examination: Present: intact Motor Examination: Present: grossly full strength in all extremities, full strength in all major muscle groups Motor examination - left side: 5/5: deltoids, biceps, triceps, wrist flexion, wrist extension, hip flexors, surveillance specialist, quadriceps, tibialis Anterior, toe extension (EHL), plantarflexion Sensation intact: Present: intact, light touch Mental Status Examination: Present: awake, alert, oriented to person, oriented to place, oriented to time, follows commands appropriately, answers questions appropriately, no agnosia, no aphasia, no aproxia Cranial nerve examination: Present: PERRL, EOMI, visual crow intact, corneal reflexes brisk symmetrically, sensory to face intact, mastication intact, no facial asymmetry is present, no dysarthria, hearing is intact symmetrically, soft palate elevates bilaterally upon phonation, gag reflex intact, flexes SCM and trapezius muscles symmetrically with full power, tongue protrudes midline, no atrophy or facial fasiculations present Cerebellar examination: Present: no dysmetria, performs finger to nose and heel to dickens symmetrically without ataxia, no truncal ataxia, no difficulty with rapid alternating movements, dysarthria Results - Laboratory Findings CBC and BMP: 10/02/16 02:38 10/02/16 02:38 Abnormal lab findings: Abnormal lab results Plt Count 139 K/mcL (140-400) L 10/02/16 02:38 POC Glucose 90 (58-89) H 10/01/16 23:53 Globulin 3.6 g/dL (2.4-3.5) H 09/29/16 17:36 TSH 0.165 mcIU/mL (0.350-4.840) L 09/29/16 17:36 Ur Specific [place] 1.027 (1.010-1.025) H 09/30/16 04:50 Urine Protein 30 mg/dL (Neg-Trace) H 09/30/16 04:50 Urine Glucose (UA) 100 mg/dL (Normal) H 09/30/16 04:50 Urine Ketones 80 mg/dL (Negative) H 09/30/16 04:50 Urine Microscopic RBC 3-5 per hpf (0-3) H 09/30/16 04:50 Urine Microscopic WBC 3-5 per hpf (0-3) H 09/30/16 04:50 Ur Squamous Epith Cells Many per lpf (None-Few) H 09/30/16 04:50 Hyaline Casts Moderate per lpf (None-Few) H 09/30/16 04:50 Waxy Casts Few per lpf (None Seen) H 09/30/16 04:50 Urine Mucus Many (Few) H 09/30/16 04:50 Consult Discharge Plan - Plan Referrals: Boris Shelby MD [Primary Care Provider] -
--- NOTE | 2016-10-02 13:50 | Discharge Summary ---
Date of Encounter: 10/02/16 Time of Encounter: 10:25 - Discharge Diagnosis (1) CVA (cerebral vascular accident) Priority: Primary Status: Acute Comments: Patient had MRI on arrival that showed multiple tiny acute ischemic infarcts in right posterior inferior cerebellar artery territory. T of the brain and neck showed CVA likely secondary to right vertebral artery stenosis. Echocardiogram shows LVEF 60-65%, normal LV chamber size and function, mild concentric left ventricular hypertrophy, mild left jugular diastolic dysfunction. There is normal RV structure and function, mildly dilated left atrium. There is no evidence of pulmonary hypertension. Patient has been treated with meclizine for dizziness. He denies dizziness today. She reports that he had been nauseated, however the room he denied nausea and states that he has been able to eat today. Per neurology, prognosis is fair in dizziness and nausea are expected to improve with time. They have signed off. We (Dr. Bridges and I) have discussed with the patient and his the fact that due to his normal lipid panel that he does not need a statin. We also discussed that there are no surgical interventions. He will continue taking aspirin daily and follow-up with neurology in the office. Qualifiers: CVA mechanism: stenosis Precerebral and cerebral artery: vertebral artery Laterality of affected vessel: right Qualified Code(s): I63.211 - Cerebral infarction due to unspecified occlusion or stenosis of right vertebral arteries (2) Dizziness Priority: Secondary Status: Acute Comments: Patient denies dizziness today. Dizziness and nausea are expected with this type of CVA. They are expected to improve, as well. Patient will be sent home with a prescription for meclizine 0.5 mg 3 times a day as needed for dizziness. (3) ROC (acute kidney injury) Priority: Secondary Status: Resolved Comments: Resolved. (4) Type 2 diabetes mellitus Priority: Secondary Status: Acute Comments: Integument home medications. Continue Accu-Cheks at home. Continue diabetic diet. Patient is very diligent about what he eats. 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 - Discharge Medications Prescriptions: Aspirin 325 mg PO DAILY #30 tablet Meclizine [Antivert] 12.5 mg PO TID PRN #45 tablet PRN Reason: Dizziness Home Medications: Fluticasone Propionate Nasal [Flonase] 50 mcg NS DAILY #1 bottle 09/14/16 [Rx] Lisinopril [Zestril] 20 mg PO DAILY #30 tablet 09/14/16 [Rx] Loratadine [Claritin] 10 mg PO DAILY #30 tablet 09/14/16 [Rx] amLODIPine [Norvasc] 10 mg PO DAILY #30 tablet 09/14/16 [Rx] metFORMIN [Glucophage] 500 mg PO BIDWM #60 tablet 09/14/16 [Rx] Aspirin 325 mg PO DAILY #30 tablet 10/02/16 [Rx] Meclizine [Antivert] 12.5 mg PO TID PRN #45 tablet 10/02/16 [Rx] Allergies/Adverse Reactions: Allergies No Known Allergies Allergy (Verified 09/07/16 13:43) Procedures/tests Complete & Pending: Procedures Performed prior 72 hours Category Date Time Status CT angio head [CT] Routine Cat Scan 09/30/16 18:[address] angio neck [CT] Routine Cat Scan 09/30/16 18:03 Completed MR head/brain wo con [MR] Routine MRI 09/30/16 14:17 Completed ECG 12 lead ECG [ECG] AM 0600 Y 09/30/16 06:00 Completed EV echocardiogram Routine Y 09/30/16 20:40 Completed Date of admission: 09/29/16 18:55 Primary care physician: Boris Shelby MD Consults: 09/29/16 20:40 Consult to Hand Washer [CONS] Routine Reason for SW Consult: d/c planning 09/29/16 20:43 Consult to Neurology [CONS] Routine Consulting Provider: Neurology [facility] Reason for Consult: persistent dizziness Call Completed: No 09/29/16 20:45 Consult to Credit Assessment Analyst [CONS] Routine Comment: Reason for Consult: diabetic teaching Consult to Nutrition [CONS] Routine Comment: Consulting Provider: NUTRITION Reason for Dietary Consult: Diet Education Discharging clinician: Faye Lockhart Anticipated date of discharge: 10/02/16 - Patient Status Disposition: Home, Self-Care Condition: Good Functional capacity at discharge: independent ambulation Overall status at discharge: patient is back to baseline - Discharge Instructions Follow Up With: Boris Shelby MD [Primary Care Provider] - Additional Instructions: Please follow-up with your primary care physician next 7-10 days for recheck. Continue your home medications Continue the good work with your diet. Continue to monitor your blood sugars. Follow-up with neurology as scheduled. Take aspirin every day. Return to the emergency department for any other problems or concerns that you may have or if symptoms return or worsen. Taking her meclizine for more than 3 times daily as needed for dizziness. Do not drive or operate any machinery until your dizziness has returned and until you have been cleared by neurology. - Diet and Activity Activity: increase activity as tolerated Diet: diabetic diet Interval History: Mr. Escobar is a 61-year-old male with past medical history diabetes and hypertension. These are both new diagnoses. He was here about 2 weeks ago and was diagnosed with both, and was started on metformin. He presented to the emergency department with complaints of nausea, vomiting, and dizziness. He reports that the symptoms started a few days prior to arrival and it gradually became worse. He states that the dizziness is worse when he turns his head or his moving around. Nausea with the same. He feels comfortable when he is lying down and rest. He also complains of generalized weakness for about a week. Few episodes of vomiting with nausea, no metaphysis. He denies chest pain, shortness of breath, abdominal pain, fever, diarrhea, headache, vision changes. CT of the head was negative. EKG was normal sinus rhythm with no ST changes. Troponin was negative. Creatinine was 1.26 and patient was slightly dehydrated. AK has resolved. The nausea and dizziness did improve with Zofran and meclizine. Patient is extremely diligent with his diet, he has expressed concern over the number carbohydrates on his meal trays. He did not eat very much due to what he believed to be poor meal choices. His nausea is controlled , and I assessed him today walked him in his room, he denied dizziness and nausea with position change or ambulation. There are no difficulties with his speech, gait, vision. There is no nystagmus or diplopia. He is neurologically intact. Patient had an MRI that showed multiple tiny acute ischemic infarcts in the right posterior inferior cerebellar artery territory. CTA brain and neck showed CVA was most likely secondary to to right vertebral artery stenosis. Patient's lipid panel was done last admission it appears to be within normal limits, he does not need statin at this time. He was on aspirin 325 mg by mouth daily follow up with neurology. There will be permissive BP control during the acute phase for the next 4-5 days. Physical therapy can be started by primary care physician on an outpatient setting. Patient's labs and vital signs been within normal limits. He is stable and appropriate for discharge. Hospital course: Mr. Escobar is a 61 year old male Time spent discussing smoking cessation with patient: 3 to 10 minutes - Time Spent with Patient Total time spent providing and/or coordinating discharge services: Less than 30 minutes - Constitutional Vitals: Temp Pulse Resp BP Pulse Ox 98.0 F 64 17 186/89 99 10/02/16 11:34 10/02/16 11:34 10/02/16 11:34 10/02/16 11:34 10/02/16 11:34 General appearance: Present: cooperative, A&O X 3, pleasant, no acute distress, answers questions appropriately - Head Head exam: Present: normal inspection - Eye Eye exam: Present: normal appearance, conjuntiva pink - ENT ENT exam: Present: mucous membranes moist, normal exam, normal external ear exam - Neck Neck exam general surgery: Present: normal inspection. Absent: lymphadenopathy , tenderness - Respiratory Respiratory exam: Present: CTAB. Absent: chest wall tenderness, rales, rhonchi , wheezes - Cardiovascular Cardiovascular exam: Present: RRR, +S1, +S2. Absent: diastolic murmur, systolic murmur - GI/Abdominal GI/Abdominal exam: Present: normal bowel sounds, soft, tenderness. Absent: hepatomegaly - Extremities Exam Extremities exam: Present: normal capillary refill, warm, radial pulses palpable and symetrical. Absent: pedal edema, tenderness - Neurological Exam Neurological exam: Present: altered, oriented X3, no focal deficits. Absent: facial droop, speech deficit
[2016-10-02 15:33] VITALS: BP 147/80
== END 2016-10-02 16:40 | disposition home or self-care (01) ==
LOC: EMEROO 15:27 → 3BNU 15:27
PROVIDERS: ADMIT Registered Nurse; ATTEND Nurse Practitioner Family